=== PATIENT | female | born 1965 | race Caucasian/White ===

== ENCOUNTER 2021-03-26 16:31 | Outpatient (CLI) | payer OTHER, SELFPAY ==
--- NOTE | ~2021-03-26 | MM_ITS ---
EXAMINATION: MM screening carin BI w ward HISTORY: Screening TECHNIQUE: Craniocaudal and mediolateral oblique 3-D tomosynthesis images were obtained and synthetic 2-D images were generated. CAD analysis was submitted and interpreted. COMPARISON: 03/09/2018 BREAST PARENCHYMAL COMPOSITION: There are scattered areas of fibroglandular density. FINDINGS: There is no evidence of suspicious mass, calcification, or architectural distortion to sugg est malignancy in either breast. There has been no suspicious interval change. IMPRESSION: 1. No mammographic evidence of malignancy. 2. Recommend routine screening mammography in one year. BI-RADS Category 1: Negative Reviewed, dictated and finalized at location A.
== END 2021-03-26 16:32 | disposition home or self-care (01) ==
LOC: ANHIMG 16:34
PROVIDERS: PCP Obstetrics & Gynecology; Visit Provider Obstetrics & Gynecology
DX: Z12.31 Encounter for screening mammogram for malignant neoplasm of breast (principal)
CPT/HCPCS: 77063; 77067

== ENCOUNTER 2021-07-25 08:38 | Emergency (ER) | payer OTHER, SELFPAY ==
[2021-07-25 08:47] VITALS: BP 135/83; PULSE 81; RESP 16; TEMP 37.2; O2SAT 99
--- NOTE | 2021-07-25 09:02 | ED.EAR ---
HPI - Ear Problem General Chief complaint: Ear Stated complaint: Ear Pain Time Seen by Provider: 07/25/21 09:00 Source: patient and RN notes reviewed Mode of arrival: ambulatory Limitations: no limitations History of Present Illness HPI Narrative: 56-year-old female presents with concern for fluid in her left ear. Reports this morning she woke up with the sloshing sound in her ear. She denies pain, sore throat, drainage from the ear, decreased hearing. Reports history of getting fluid in the ear and occasional ear infections. Reports she used Flonase this morning with no relief. MD Complaint: ear pain Related Data Home Medications Medication Instructions Recorded Confirmed prednisolone acetate 1 drp EACH EYE DAILY 07/25/21 07/25/21 Allergies Allergy/AdvReac Type Severity Reaction Status Date / Time No Known Allergies Allergy Unknown Unverified 07/25/21 08:58 Review of Systems Review of Systems: CONSTITUTIONAL: Denies malaise, chills, sweats, or fever. EYES: Denies visual changes, redness, or discharge. ENT: Denies rhinorrhea, congestion, sinus pain, and sore throat. Reports left otalgia CARDIOVASCULAR: Denies chest pain, palpitations, or edema. RESPIRATORY: Denies cough or dyspnea. GASTROINTESTINAL: Denies abdominal pain, nausea, vomiting, diarrhea SKIN: Denies rash or itching. MUSCULOSKELETAL: Denies myalgia. NEUROLOGIC: Denies headache. All systems reviewed & are unremarkable except as noted in HPI and below PMFSH Social History Social History Smoking status: Heavy tobacco smoker Alcohol intake: current Comments At time of signature, agree with nursing past medical, surgical, social and family history. There is no relevant family history pertinent to the presenting complaint Exam Narrative: GENERAL: Well-appearing, well-nourished, and in no acute distress. HEAD: Normocephalic EYES: PERRLA, conjunctivae clear ENT: Nares clear. Mucous membranes moist. TM pearly may with sharp light reflex bilaterally; no tragal tenderness. Oropharynx not erythematous without lesions. Tonsils not enlarged and without exudate, no drooling, no hoarseness, no trismus, uvula midline. NECK: Supple. No lymphadenopathy CHEST: Clear to auscultation, breath sounds equal. No wheezing, rhonchi, rales, or stridor. No respiratory distress, speaks in full sentences. HEART: Regular rate and rhythm. No murmur heard. SKIN: Warm, dry, no rash. NEURO: Alert and oriented x3. PSYCH: Normal mood and affect Course Course Emergency Course: Patient is aware of diagnosis, understands and agrees to treatment plan. Anticipatory guidance given. Patient agrees to follow-up as directed and is aware of reasons to seek care at the emergency department. Portions of this record may have been created with voice recognition software Vital Signs Vital signs: Vital Signs Temperature 98.9 F 07/25/21 08:47 Pulse Rate 81 07/25/21 08:47 Respiratory Rate 16 07/25/21 08:47 Blood Pressure 135/83 07/25/21 08:47 Pulse Oximetry 99 07/25/21 08:47 Temperature 98.9 F 07/25/21 08:47 Pulse Rate 81 07/25/21 08:47 Respiratory Rate 16 07/25/21 08:47 Blood Pressure 135/83 07/25/21 08:47 Pulse Oximetry 99 07/25/21 08:47 Reviewed. Medical Decision Making MDM Narrative Medical decision making narrative: Differential diagnosis considered: Hernandez virus, strep pharyngitis, allergic rhinitis, upper respiratory tract infection, sinusitis, rhinosinusitis, nasopharyngitis. viral pharyngitis, otitis media, otitis externa, eustachian tube dysfunction, foreign body, cerumen impaction. Exam findings show no acute concerns or changes; patient is non-toxic appearing and is in no distress. Patient is appropriate for outpatient treatment and follow-up. Vital Signs Vital Signs: Vital Signs Temperature 98.9 F 07/25/21 08:47 Pulse Rate 81 07/25/21 08:47 Respiratory Rate 16 07/25/21 08:47 Blood Pressure 135/83 07/25/21 08:47 Pulse Oxi
== END 2021-07-25 09:10 | disposition home or self-care (01) ==
PROVIDERS: Emergency Provider Nurse Practitioner
DX: H92.02 Otalgia, left ear (principal); Z94.7 Corneal transplant status
CPT/HCPCS: 99211; G0463

== ENCOUNTER 2023-04-12 13:01 | Emergency (ER) | payer OTHER, SELFPAY ==
--- NOTE | ~2023-04-12 | XR_ITS ---
XR sacrum coccyx min 2V DATE: 04/12/2023 13:39 INDICATION: Fall. Tailbone and right hip pain TECHNIQUE: AP, angled AP and lateral views COMPARISON: None FINDINGS: Severe degenerative disc disease at L5-S1 and mild amount of disc disease at the remainder of the lumbar interspaces The sacroiliac joints and pubic symphysis are intact. No sacral or coccygeal fracture or bone destruction is evident. IMPRESSION: Multilevel degenerative disc disease of the lumbar spine, especially L5-S1 No fracture or bone destruction of the sacrum or the coccyx Reviewed, dictated and finalized at location B. IMPRESSION: Multilevel degenerative disc disease of the lumbar spine, especiall y L5-S1 No fracture or bone destruction of the sacrum or the coccyx
--- NOTE | ~2023-04-12 | XR_ITS ---
XR pelvis 1-2V DATE: 04/12/2023 13:39 INDICATION: Fall. Low back, tailbone, hip pain TECHNIQUE: AP view COMPARISON: None FINDINGS: The pubic symphysis and sacroiliac joints are intact. No pelvic fracture or bone destructio n is detected. Hip joint spaces are symmetric and relatively preserved. Degenerative disease at L5-S1 and to a lesser extent L4-5. IMPRESSION: No significant abnormality of the pelvis Reviewed, dictated and finalized at location B.
--- NOTE | ~2023-04-12 | XR_ITS ---
XR lumbar spine 2-3V DATE: 04/12/2023 13:39 INDICATION: Fall. Back and tailbone and right hip pain TECHNIQUE: AP, lateral, coned lateral lumbosacral views COMPARISON: None FINDINGS: Thoracolumbar levoscoliosis. There is severe degenerative disc disease at L5-S1 and moderat e moderate degenerative disease at the remaining lumbar interspaces. There is degenerative spurring o f the lower thoracic spine. Grade 1 minimal anterolisthesis at L3-4 due to degenerative change at the apophyseal joints. No fracture or bone destruction. The included lower thoracic and lumbar pedicles are intact. The sacr oiliac joints appear normal. Extensive calcification of the distal abdominal aorta and common iliac arteries IMPRESSION: Degenerative changes of the thoracic and lumbar spine; no fracture or bone destruction Reviewed, dictated and finalized at location B.
[2023-04-12 13:03] VITALS: BP 156/75; PULSE 92; RESP 20; TEMP 36.3; O2SAT 98
--- NOTE | 2023-04-12 13:14 | ED.GENADULT ---
HPI - General Adult General Chief complaint: Extremity Injury, Lower Stated complaint: R knee pain Time Seen by Provider: 04/12/23 13:06 History of Present Illness HPI narrative: 58yo woman history of low back pain, arthritis, and sciatica, presents with much worse sciatica pain for the past 24 hours since slipping in a dog tub and landing on her tailbone. Hurts to bear weight, pain radiates down the back of the right thigh into the knee. Related Data Home Medications Medication Instructions Recorded Confirmed prednisolone acetate 1 % eye 1 drp EACH EYE DAILY 07/25/21 04/12/23 drops,suspension Allergies Allergy/AdvReac Type Severity Reaction Status Date / Time No Known Allergies Allergy Unknown Verified 04/12/23 13:05 Review of Systems Review of Systems: All systems reviewed & are unremarkable except as noted in HPI and below Constitutional: Constitutional: Denies fever(s) ENT: Denies dysphagia Cardiovascular: Cardiovascular: Denies chest pain Respiratory: Respiratory: Denies dyspnea PMFSH Past Medical History Medical History Carpal tunnel syndrome COPD, mild Cornea transplant recipient 2020 GERD (gastroesophageal reflux disease) Hiatal hernia Irritable bowel syndrome with constipation Joint pain Left wrist pain Overweight (BMI 25.0-29.9) Screening for breast cancer Smoker Trigger thumb Surgical History Surgical History H/O hernia repair 1999 H/O: hysterectomy 2003 History of throat surgery Webbing removed from throat 2018 Family History Family History Father Lung cancer Mother Sarcoma Family history of breast cancer Social History Social History Smoking packs per day: 1 Smoking cigarettes per day: 20.0 Smoking status: Heavy tobacco smoker Alcohol intake: current Substance use: current Substance use type: marijuana Exam Const: General: healthy appearing Nutritional Appearance: well nourished Eyes: Conjunctivae: conjunctivae normal Resp: Effort & Inspection: normal respiratory effort and not labored Cardio: Rate: regular rate GI: Inspection: non-distended Back/Spine/Pelvis: Other: intact ROM Skin: General skin exam: normal color Course Vital Signs Vital signs: Vital Signs Oxygen Delivery Room Air 04/12/23 13:01 Temperature 36.3 C L 04/12/23 13:03 Pulse Rate 92 04/12/23 13:03 Respiratory Rate 20 04/12/23 13:03 Blood Pressure 156/75 H 04/12/23 13:03 Pulse Oximetry 98 04/12/23 13:03 Oxygen Delivery Room Air 04/12/23 13:03 Medical Decision Making MDM Narrative Medical decision making narrative: low back pain after fall DDx sciatica, muscle spasm, strain, fracture, contusion. Pt requesting X-rays. Vital Signs Vital Signs: Vital Signs Oxygen Delivery Room Air 04/12/23 13:01 Temperature 36.3 C L 04/12/23 13:03 Pulse Rate 92 04/12/23 13:03 Respiratory Rate 20 04/12/23 13:03 Blood Pressure 156/75 H 04/12/23 13:03 Pulse Oximetry 98 04/12/23 13:03 Oxygen Delivery Room Air 04/12/23 13:03 Discharge Plan Discharge Clinical Impression: Acute midline low back pain with right-sided sciatica, Osteoarthritis of spine with radiculopathy, lumbar region Fall from standing Qualifiers: Encounter type: initial encounter Qualified Code(s): W19.XXXA - Unspecified fall, initial encounter Patient Disposition: Home, Self-Care Condition: Improved Instructions: Antibiotic Form Additional Instructions: Your x-rays reveal mild osteoarthritis changes of the spine and pelvis and no fractures. Take the prescribed medications as needed to relax your muscles and relieve your sciatica pain. You can also add a heating pad to the low back and Acetaminophen
[2023-04-12] MEDS: ACETAMINOPHEN 500 MG TABLET 1000 MG PO (13:34)
[2023-04-12] MEDS: methocarbamoL 500 MG TABLET 1000 MG PO (13:35)
[2023-04-12] MEDS: KETOROLAC (*BKC) 60 MG/2 ML VIAL IM (13:35)
[2023-04-12] MEDS: ORPHENADRINE CITRATE 30 MG/ML 2 ML VIAL 60 MG IM (13:36)
[2023-04-12 14:35] VITALS: BP 138/72; PULSE 70; RESP 16; O2SAT 99
== END 2023-04-12 14:35 | disposition home or self-care (01) ==
LOC: CHSED 13:40
PROVIDERS: Emergency Provider Emergency Medicine; PCP Family Medicine
DX: M47.816 Spondylosis without myelopathy or radiculopathy, lumbar region (principal); M54.41 Lumbago with sciatica, right side; M25.561 Pain in right knee; J44.9 Chronic obstructive pulmonary disease, unspecified; F17.210 Nicotine dependence, cigarettes, uncomplicated; W18.2XXA Fall in (into) shower or empty bathtub, initial encounter
CPT/HCPCS: 72100; 72170; 72220; 96372; 99284; A9270; J1885; J2360

== ENCOUNTER 2023-05-15 12:34 | Outpatient (CLI) | payer OTHER, SELFPAY ==
--- NOTE | ~2023-05-15 | MR_ITS ---
EXAMINATION: MR lumbar spine wo con DATE: 05/15/2023 13:37 INDICATION: Radiculopathy, lumbar spine. TECHNIQUE: Magnetic resonance imaging (MRI) of the lumbar spine was performed without intravenous con trast. Sequences included sagittal T2-weighted FSE, sagittal T2-weighted FS FSE, sagittal T1-weighted FSE, and axial T2-weighted FSE. COMPARISON: Lumbar spine radiographs 04/12/2023 FINDINGS: There is 3 degrees levocurvature of lumbar spine. There is mild chronic anterior wedging of L1 vertebral body. There are Schmorl's nodes at multiple levels. There is mildly decreased disc heig ht at L1-L2 and L2-L3 and severely decreased disc height at L5-S1. The distal spinal cord signal inte nsity is normal. The conus medullaris is at T12-L1. The following disc levels are specifically discus sed: L1-L2: The disc is bulging. There is mild bilateral facet joint osteoarthritis. There is mild right n eural foraminal stenosis. There is mild central canal stenosis. L2-L3: The disc is bulging. There is moderate bilateral facet joint osteoarthritis. There is mild yu ateral neural foraminal stenosis. There is mild central canal stenosis. L3-L4: The disc is bulging and has an annular fissure. There is severe bilateral facet joint osteoart hritis. There is mild bilateral neural foraminal stenosis. There is mild central canal stenosis. L4-L5: The disc is bulging and has an annular fissure. There is mild bilateral facet joint osteoarthr itis. There is mild bilateral neural foraminal stenosis. There is mild central canal stenosis. L5-S1: The disc is bulging with superimposed right central extrusion. There is mild right and moderat e left facet joint osteoarthritis. There is mild right and moderate left neural foraminal stenosis. T here is mild central canal stenosis. IMPRESSION: 1. Severe lower lumbar spondylosis. Reviewed, dictated and finalized at location A.
== END 2023-05-15 12:35 | disposition home or self-care (01) ==
LOC: ANHIMG 12:36
PROVIDERS: PCP Family Medicine; Visit Provider Nurse Practitioner
DX: M47.26 Other spondylosis with radiculopathy, lumbar region (principal)
CPT/HCPCS: 72148

== ENCOUNTER 2023-10-28 15:32 | Outpatient (CLI) | payer BC, SELFPAY ==
[2023-10-28 19:06] LABS: Alanine Aminotransferase 42 U/L (6-35); Albumin Level 4.3 g/dL (3.5-5.1); Alkaline Phosphatase 70 U/L (38-126); Anion Gap 8 mmol/L (8-16); Aspartate Amino Transferase 44 U/L (14-36); Bilirubin,Total 0.5 mg/dL (0.2-1.3); Blood Urea Nitrogen 11 mg/dL (7-17); Calcium 9.1 mg/dL (8.4-10.2); Carbon Dioxide 30 mmol/L (22-30); Chloride 102 mmol/L (98-107); Cholesterol 192 mg/dL (0-200); Estimated Glomerular Filt Rate > 60; Glucose 93 mg/dL (65-110); HDL Direct 42 mg/dL; Potassium 3.9 mmol/L (3.4-5.0); Sodium 140 mmol/L (137-145); Triglycerides 189 mg/dL (<150)
[2023-10-28 19:16] LABS: Basophils Absolute Auto 0.1 K/mm3 (0.0-0.1); Basophils Percent Auto 0.9 % (0.2-1.2); Eosinophils Absolute Auto 0.3 K/mm3 (0-0.3); Eosinophils Percent Auto 4.7 % (0-4.4); Hematocrit 45.1 % (37.0-47.0); Hemoglobin 14.5 g/dL (12.0-15.0); Immature Granulocyte Absolute 0.01 K/mm3 (0.00-0.031); Immature Granulocyte Percent A 0.1 % (0-0.5); Lymphocytes Absolute Auto 2.04 K/mm3 (0.9-3.2); Lymphocytes Percent Auto 29.9 % (18.3-44.2); Mean Corpuscular HGB Conc 32.2 g/dl (32-36); Mean Corpuscular Hemoglobin 29.1 pg (26-34); Mean Corpuscular Volume 90.6 fl (80-100); Mean Platelet Volume 10.2 fl (7.4-10.4); Monocytes Absolute Auto 0.5 K/mm3 (0.1-0.6); Monocytes Percent Auto 7.9 % (2.6-8.5); Neutrophils Absolute Auto 3.9 K/mm3 (1.3-6.7); Neutrophils Percent Auto 56.5 % (45.5-73.1); Platelet Count Result 276 k/mm3 (150-375); Red Blood Count 4.98 M/mm3 (4.2-5.4); White Blood Count 6.8 K/mm3 (4.5-10.0)
[2023-10-28 19:17] LABS: LDL Cholesterol Direct 120 mg/dL
[2023-10-28 19:32] LABS: Hemoglobin A1C 6.2 % (<5.7)
[2023-10-28 19:35] LABS: Thyroid Stimulating Hormone 0.694 uIU/mL (0.465-4.680)
[2023-10-28 19:49] LABS: Free T4 Free Thyroxine 0.94 ng/mL (0.78-2.19); Vitamin D 25 Hydroxy 17.8 ng/mL
== END 2023-10-28 15:33 | disposition home or self-care (01) ==
LOC: ANHGOSHLAB 15:34
PROVIDERS: PCP Family Medicine; Visit Provider Family Medicine
DX: E78.5 Hyperlipidemia, unspecified (principal); R53.83 Other fatigue; E55.9 Vitamin D deficiency, unspecified; R73.9 Hyperglycemia, unspecified
CPT/HCPCS: 36415; 80053; 80061; 82306; 83036; 84439; 84443; 85025

== ENCOUNTER 2024-04-12 15:32 | Outpatient (CLI) | payer BC, SELFPAY ==
--- NOTE | ~2024-04-12 | MM_ITS ---
EXAMINATION: MM screening carin BI w ward HISTORY: Screening TECHNIQUE: Craniocaudal and mediolateral oblique 3-D tomosynthesis images were obtained and synthetic 2-D images were generated. CAD analysis was submitted and interpreted. COMPARISON: 03/26/2021 BREAST PARENCHYMAL COMPOSITION: Not dense: There are scattered areas of fibroglandular density. FINDINGS: There is a mass in the lower inner quadrant of the left breast posteriorly. There is a foca l asymmetry in the subareolar location the right breast on MLO view. IMPRESSION: 1. New focal asymmetry of the right breast and left breast mass in the lower inner quadrant. 2. Additional mammographic views and possible breast ultrasound are recommended. BI-RADS Category 0: Incomplete: Needs additional imaging evaluation. Reviewed, dictated and finalized at location B. IMPRESSION: 1. New focal asymmetry of the right breast and left breast mass in the lower in ner quadrant. 2. Additional mammographic views and possible breast ultrasound are recommended . BI-RADS Category 0: Incomplete: Needs additional imaging evaluation.
--- NOTE | ~2024-04-12 | DEXA_ITS ---
Bone Density Report Name: LILIANA MUNROE Age: 59 Sex: Female Ethnicity: White Date of : 1965 Indication: postmenopausal; screening for osteoporosis; height loss; hysterectomy; Referring Provider: TETE NORWOOD Study: Bone densitometry was performed. Exam Date: April 12, 2024 Accession number: [id number] Bone Density: Region BMD T-score Z-score Classification AP Spine(L1-L4) 1.193 1.3 2.8 Normal Femoral Neck (Left) 0.803 -0.4 0.9 Normal Total Hip (Left) 1.028 0.7 1.7 Normal Femoral Neck (Right) 0.805 -0.4 0.9 Normal Total Hip (Right) 1.001 0.5 1.5 Normal Total Hip Mean 1.014 0.6 1.6 Normal World Health Organization criteria for BMD impression classify patients as: Normal (T-score at or above -1.0), Osteopenia (T-score between -1.0 and -2.5), or Osteoporosis (T-score at or below -2.5). 10-year Fracture Risk: FRAX not reported because: All T-scores for Spine Total, Hip Total, Femoral Neck at or above -1.0 Clinical Information Provided by Patient: Has used the following medications: Vitamin D Has the following medical conditions: Hysterectomy Patient maximum height was 69 Menopause Age: 51 Drinks caffeinated beverages Onset of menses at age 11 Number of children 2 Impression: The patient has normal bone mass. Discussion: BONE DENSITY IS ABOVE THE MINIMUM DESIRABLE LEVEL AT ALL SKELETAL SITES TESTED. This patient?s bone mineral density is above the minimum desirable level (T-score -1.0 or better) at all sites measured. The patient should follow a healthful lifestyle (good nutrition with adequate calcium and vitamin D, and appropriate weight-bearing exercise). Follow-Up: Consider repeating this study in 5 years or sooner if there is some new clinical indication. Reported by: RONY on 04/12/2024 4:05:00 PM. Reviewed, dictated and finalized at location ABelkis STEEN
== END 2024-04-12 15:33 | disposition home or self-care (01) ==
LOC: ANHIMG 15:33
PROVIDERS: PCP Family Medicine; Visit Provider Family Medicine
DX: Z12.31 Encounter for screening mammogram for malignant neoplasm of breast (principal); Z78.0 Asymptomatic menopausal state; Z13.820 Encounter for screening for osteoporosis; R92.8 Other abnormal and inconclusive findings on diagnostic imaging of breast
CPT/HCPCS: 77063; 77067; 77080

== ENCOUNTER 2024-05-03 13:24 | Outpatient (CLI) | payer BC, SELFPAY ==
--- NOTE | ~2024-05-03 | MMUS_ITS ---
EXAMINATION: MM diagnostic carin BI w ward, US breast BI limited HISTORY: Palpable left breast abnormality. TECHNIQUE: Additional 3-D tomosynthesis images of the breasts were performed and synthetic 2-D images were generated. CAD analysis was submitted and interpreted. High resolution limited bilateral breast ultrasound was performed. COMPARISON: Comparison to multiple prior studies sequentially, with oldest reviewed study dated 03/09. BREAST PARENCHYMAL COMPOSITION: Not dense: There are scattered areas of fibroglandular density. FINDINGS: MAMMOGRAPHIC FINDINGS: There are no suspicious masses, calcifications or architectural distortion in the right breast. There is a circumscribed mass in the lower inner quadrant of the left breast adjacent to the skin surface measuring approximately 8 mm by mammography. ULTRASOUND: Limited right breast ultrasound: Normal heterogeneous echotexture without focal mass. Mildly prominen t ducts. Limited left breast ultrasound: At 9:00, 15 cm from the nipple there is a superficial slightly irregu lar shaped hypoechoic heterogeneous mass with posterior acoustic enhancement and edge shadowing. This mass measures 9 x 7 x 7 mm. No internal vascularity. IMPRESSION: 1. Complex 9 mm left breast mass at 9:00, 15 cm from the nipple. 2. Ultrasound-guided left breast biopsy recommended. BI-RADS category 4, suspicious findings. Reviewed, dictated and finalized at location B. IMPRESSION: 1. Complex 9 mm left breast mass at 9:00, 15 cm from the nipple. 2. Ultrasound-guided left breast biopsy recommended. BI-RADS category 4, suspicious findings.
== END 2024-05-03 13:25 | disposition home or self-care (01) ==
LOC: ANHIMG 13:32
PROVIDERS: PCP Family Medicine; Visit Provider Family Medicine
DX: R92.8 Other abnormal and inconclusive findings on diagnostic imaging of breast (principal)
CPT/HCPCS: 76642; 77062; 77066; G0279

== ENCOUNTER 2024-07-12 09:04 | Outpatient (CLI) | payer BC, SELFPAY ==
--- NOTE | ~2024-07-12 | MMUS_ITS ---
US breast biopsy LT w image, MM post biopsy diagnostic LT EXAMINATION: US GUIDED NEEDLE BIOPSY WITH VACUUM ASSISTANCE DATE: 07/12/2024 10:27 CDT INDICATION: Left breast mass seen on prior examination. Ultrasound-guided core biopsy is requested t o evaluate for malignancy. BREAST PARENCHYMAL COMPOSITION: Not Dense: The breasts are almost entirely fatty. TECHNIQUE AND FINDINGS: The risks and potential benefits of the procedure were discussed with the patient, and written inform ed consent was obtained. After sterile preparation of the left breast, 1% lidocaine was utilized for local anesthesia. 1% lidocaine with epinephrine was used for deep anesthesia. A 10G vacuum-assisted biopsy gun needle was advanced through to the outer edge of the region of inter est from a medial approach utilizing sonographic guidance. A total of 4 tissue core samples were obt ained through the lesion. An Inrad tissue marker clip was then placed at the biopsy site. Hemostasis was achieved. The patient tolerated procedure well and there was no evidence of immediate complication. The patien t was given verbal instructions partly is from the department. Left breast mammograms to document ti ssue marker clip placement. The tissue samples were submitted to surgical pathology for histologic an alysis. IMPRESSION: 1. Successful ultrasound-guided vacuum-assisted biopsy of left breast mass with post procedure mammo gram for marker placement. Please refer to pathology report for histologic analysis. Reviewed, dictated and finalized at location B. IMPRESSION: 1. Successful ultrasound-guided vacuum-assisted biopsy of left breast mass wit h post procedure mammogram for marker placement. Please refer to pathology repo rt for histologic analysis.
== END 2024-07-12 09:05 | disposition home or self-care (01) ==
PROVIDERS: PCP Family Medicine; Visit Provider Family Medicine
DX: N63.20 Unspecified lump in the left breast, unspecified quadrant (principal); N60.02 Solitary cyst of left breast
CPT/HCPCS: 19083; 77065; 88305; A4648